=== PATIENT | male | born 1960 | race Caucasian/White ===

== ENCOUNTER 2018-07-04 18:24 | Emergency (ER) | payer MEDICAID ==
[~2018-07-04] VITALS: Ht 182.9 cm; Wt 81.6 kg
[~2018-07-04 18:24] MED LIST: ASPITAB34 PO; TAM04C PO
[2018-07-04 21:35] VITALS: BP 137/89
[2018-07-04] MEDS ORDERED: BACLOFEN 10 MG TAB PO ONE (22:15)
[2018-07-04] MEDS ORDERED: ONDANSETRON ODT 4 MG TAB PO ONE (22:15)
[2018-07-04] MEDS ORDERED: MEPERIDINE HCL (50 MG/ML) 1 ML VIAL IM ONE (22:15)
== END 2018-07-04 22:39 | disposition home or self-care (01) ==
LOC: EDBD 18:24 → ER 18:32
DX: M25.561 Pain in right knee (principal); M54.2 Cervicalgia; R51 Headache; J44.9 Chronic obstructive pulmonary disease, unspecified; M19.90 Unspecified osteoarthritis, unspecified site; V49.49XA Driver injured in collision with other motor vehicles in traffic accident, initial encounter; Y93.89 Activity, other specified; Y99.8 Other external cause status; Y92.410 Unspecified street and highway as the place of occurrence of the external cause
CPT/HCPCS: 70450; 72125; 73030; 73590; 96372; 99284; J2175; Q0162

== ENCOUNTER 2021-10-13 16:50 | Emergency (ER) | payer MEDICAID ==
[~2021-10-13] VITALS: Ht 185.4 cm; Wt 88.0 kg
[2021-10-13 17:15] LABS: Basophils # (auto) 0.2 10 ^3/uL (0-0.2); Basophils % (auto) 2.3 % (0.0-2.0); Eosinophils # (auto) 0.2 10 ^3/uL (0-0.8); Eosinophils % (auto) 2.2 % (0.0-7.0); Hematocrit 35.2 % (41.0-53.0); Hemoglobin 11.7 g/dL (13.5-17.5); Lymphocytes # (auto) 3.1 10 ^3/uL (0.4-5.4); Lymphocytes % (auto) 37.6 % (10.0-50.0); Mean Corpuscular Hemoglobin 33.2 pg (28.0-32.0); Mean Corpuscular Hgb Conc. 33.3 g/dL (32.0-36.0); Mean Corpuscular Volume 99.7 fL (80.0-100.0); Monocytes # (auto) 0.9 10 ^3/uL (0-1.3); Monocytes % (auto) 11.2 % (0.0-12.0); Neutrophils # (auto) 3.9 10 ^3/uL (1.6-8.6); Neutrophils % (auto) 46.7 % (37.0-80.0); Nucleated Red Blood Cells % 0.2 %; Red Blood Cells 3.53 10^6/uL (4.5-5.90); Red Cell Distribution Width 14.4 % (11.8-14.3); White Blood Cell 8.3 10^3/uL (4.4-10.8)
[2021-10-13 17:31] LABS: INR 0.97 (0.9-1.15); Partial Thromboplastin Time 26.5 sec (24.6-33.4)
[2021-10-13 17:32] LABS: Albumin 3.9 g/dL (3.4-5.0); Calcium 9.3 mg/dL (8.5-10.1); Magnesium 2.4 mg/dL (1.6-2.6); Potassium 3.7 mmol/L (3.5-5.1)
[2021-10-13 17:35] LABS: BUN/Creatinine Ratio 11.6; Bilirubin, Total 0.5 mg/dL (0.2-1.0); Total Protein 7.3 g/dL (6.4-8.2)
[2021-10-13 18:15] LABS: Urine Bacteria NONE SEEN /hpf (None Seen); Urine Blood Negative /uL (Negative); Urine Hyaline Cast FEW /lpf (0 - 2); Urine Mucus FEW (None Seen); Urine Specific Gravity 1.028 (1.001-1.035); Urine WBC 6 /hpf (0 - 3)
[2021-10-13] MEDS ORDERED: HYDROcodone-ACET 5/325MG TAB PO ONE (20:15)
[2021-10-13 23:12] VITALS: BP 123/77
[2021-10-13] MEDS ORDERED: TAM04C PO (23:16)
[2021-10-13] MEDS ORDERED: CIPR-173 PO (23:16)
== END 2021-10-13 23:34 | disposition home or self-care (01) ==
LOC: ER 16:50
DX: N20.0 Calculus of kidney (principal); N39.0 Urinary tract infection, site not specified; J44.9 Chronic obstructive pulmonary disease, unspecified; F17.210 Nicotine dependence, cigarettes, uncomplicated; Z79.82 Long term (current) use of aspirin; Z79.899 Other long term (current) drug therapy; Z79.2 Long term (current) use of antibiotics
CPT/HCPCS: 36415; 71045; 74176; 80053; 81001; 83735; 83880; 84443; 84484; 85025; 85610; 85730; 93005

== ENCOUNTER 2023-08-26 14:44 | Emergency (ER) | payer OTHER ==
[~2023-08-26] VITALS: Ht 185.4 cm; Wt 95.4 kg
[~2023-08-26 14:44] MED LIST changes: +CIPR-173 PO; -TAM04C PO; +TAMS-35 PO
[2023-08-26 15:57] LABS: Eosinophils # (auto) 0.4 10 ^3/uL (0-0.8); Hematocrit 32.7 % (41.0-53.0); Hemoglobin 11.2 g/dL (13.5-17.5); Mean Corpuscular Hemoglobin 34.9 pg (28.0-32.0); Mean Corpuscular Volume 102.3 fL (80.0-100.0); Monocytes # (auto) 0.7 10 ^3/uL (0-1.3); Neutrophils # (auto) 3.4 10 ^3/uL (1.6-8.6)
[2023-08-26 16:00] LABS: Basophils # (auto) 0.1 10 ^3/uL (0-0.2); Eosinophils % (auto) 5.3 % (0.0-7.0); Lymphocytes # (auto) 2.9 10 ^3/uL (0.4-5.4); Lymphocytes % (auto) 38.2 % (10.0-50.0); Mean Corpuscular Hgb Conc. 34.2 g/dL (32.0-36.0); Monocytes % (auto) 9.9 % (0.0-12.0); Neutrophils % (auto) 44.6 % (37.0-80.0); Nucleated Red Blood Cells % 1.3 %; Red Cell Distribution Width 14.8 % (11.8-14.3); White Blood Cell 7.5 10^3/uL (4.4-10.8)
[2023-08-26 16:02] LABS: Chloride 108 mmol/L (98-107); Potassium 3.7 mmol/L (3.5-5.1); Sodium 142 mmol/L (136-145)
[2023-08-26 16:03] LABS: Anion Gap 7 (5-15); Calcium 10.1 mg/dL (8.7-10.4); Carbon Dioxide 27 mmol/L (20-30)
[2023-08-26 16:08] LABS: BUN/Creatinine Ratio 12.7 (10.0-20.0); Blood Urea Nitrogen 20 mg/dL (9-23); Glucose 115 mg/dL (74-106)
[2023-08-26] MEDS: SODIUM CHLORIDE 0.9% 1,000 ML IV ONE (16:47)
[2023-08-26 17:46] LABS: Urine Bacteria None Seen /hpf (None Seen)
[2023-08-26] MEDS: MORPHINE SULFATE INJ 2 MG/ml SYRG IV ONE (17:58)
[2023-08-26] MEDS: ONDANSETRON HCL 4 MG/2 ML VIAL IV ONE (17:58)
[2023-08-26 17:59] LABS: Urine Blood Negative /uL (Negative); Urine Clarity Clear (Clear); Urine Color Yellow (Yellow); Urine Hyaline Cast FEW /lpf (0 - 2); Urine Protein, UAD TRACE (Negative); Urine Specific Gravity 1.022 (1.001-1.035); Urine Urobilinogen Normal (Negative); Urine WBC 3 /hpf (0 - 3); Urine pH 5.5 (5.0-9.0)
[2023-08-26 19:38] VITALS: BP 141/84; PULSE 71; RESP 16; TEMP 97.5; O2SAT 98
[2023-08-26] MEDS: SODIUM CHLORIDE 0.9% 500 ML IV ONE (21:15)
[2023-08-26] MEDS: LIDOCAINE 5% TOPICAL PATCH TOP ONE (22:30)
[2023-08-26] MEDS ORDERED: LIDOCAINE 5% TOPICAL PATCH TOP ONE (22:30)
[2023-08-26] MEDS ORDERED: LIDO5DIS21 TOP (22:35)
== END 2023-08-26 23:14 | disposition left against medical advice (07) ==
LOC: ER 14:44
DX: N18.9 Chronic kidney disease, unspecified (principal); R53.1 Weakness; J44.9 Chronic obstructive pulmonary disease, unspecified; F15.90 Other stimulant use, unspecified, uncomplicated; F12.90 Cannabis use, unspecified, uncomplicated; F17.210 Nicotine dependence, cigarettes, uncomplicated
CPT/HCPCS: 36415; 70450; 74176; 80048; 81001; 83880; 85025; 96361; 96374; 96375; 99285; J2270; J2405; J7030